=== PATIENT | female | born 1995 | race Caucasian/White ===

== ENCOUNTER 2017-11-24 19:39 | Emergency (ER) | payer OTHER ==
[2017-11-24] MEDS ORDERED: Ibuprofen 800 MG TAB ONE (20:33)
[2017-11-24] MEDS ORDERED: HYDROcodone/Acetaminophen 10/325 mg Tablet ONE (20:33)
--- NOTE | 2017-11-24 20:39 | RAD ---
AP PELVIS: 11/24/17 HISTORY: Pelvic pain. Pelvic ring is intact without evidence of fracture. Surgical clip is seen on the left side of the pel vis. IMPRESSION: No acute findings. POS: [facility]
--- NOTE | 2017-11-24 20:41 | RAD ---
LEFT HIP TWO VIEWS: 11/24/17 HISTORY: Fell yesterday with left hip pain. There is no signs of fracture or dislocation. IMPRESSION: Negative left hip. POS: [facility]
== END 2017-11-24 21:08 | disposition home or self-care (01) ==
LOC: SCSER 19:39
DX: S20.212A Contusion of left front wall of thorax, initial encounter (principal); S30.0XXA Contusion of lower back and pelvis, initial encounter; J45.909 Unspecified asthma, uncomplicated; F41.9 Anxiety disorder, unspecified; F32.9 Major depressive disorder, single episode, unspecified; Z79.899 Other long term (current) drug therapy; W01.0XXA Fall on same level from slipping, tripping and stumbling without subsequent striking against object, initial encounter
CPT/HCPCS: 72170